=== PATIENT | female | born 1990 ===

== ENCOUNTER 2022-11-18 05:57 | Day surgery (SDC) | payer OTHER ==
[~2022-11-18] VITALS: Ht 157.5 cm; Wt 67.6 kg
[2022-11-18] MEDS ORDERED: MORGIDOX100 MG PO (10:50)
[2022-11-18] MEDS ORDERED: NAPR500T14 PO (10:50)
== END 2022-11-18 12:55 | disposition home or self-care (01) ==
LOC: CIR.AMB 05:57
PROVIDERS: ATTEND Obstetrics & Gynecology
DX: N84.0 Polyp of corpus uteri (principal); D25.0 Submucous leiomyoma of uterus; N88.2 Stricture and stenosis of cervix uteri; N92.5 Other specified irregular menstruation; Z20.822 Contact with and (suspected) exposure to COVID-19; I10 Essential (primary) hypertension; R10.2 Pelvic and perineal pain